=== PATIENT | male | born 1945 | race Caucasian/White ===

== ENCOUNTER 2021-07-17 19:23 | Emergency (ER) | payer MEDICARE, SELFPAY ==
[2021-07-17 19:25] VITALS: BP 181/82; PULSE 84; RESP 18; TEMP 37.8; O2SAT 97; BMI 29.0
--- NOTE | 2021-07-17 20:31 | HMH.EDUTC ---
[facility] – [place] Disposition Clinical Impression: Sinusitis Qualifiers: Sinusitis location: unspecified location Chronicity: acute Recurrence: non-recurrent Qualified Code(s): J01.90 - Acute sinusitis, unspecified Disposition: Home, Self-Care Condition on Discharge: Good Instructions: Sinusitis, DI for Sinusitis, Preventing the Spread of Coronavirus Discharge Instructions Additional Instructions: Drink plenty of fluids. Take tylenol or ibuprofen for pain or fever. Take the medications as directed. Follow up with your regular doctor. GO TO THE ER FOR ANY WORSENING SYMPTOMS Quarantine until you know the results of your covid-19 test. If it is positive, the health department should call you and give you further instructions about your length of Quarantine and other things. Notify your school or workplace of your results and follow their instructions regarding return to work/school. Don't start the oral steroids until tomorrow, since you had the shot here today. Prescriptions: methylPREDNISolone [Medrol] 4 mg PO DIRECTED 6 Days #21 packet Transmission Status: Received by [id number] Benzonatate [Tessalon Perle 100mg Cap] 100 mg PO TIDP PRN #30 cap PRN Reason: Cough Transmission Status: Received by [id number] Referrals: Provider,Referral, [Primary Care Provider] - Time of Disposition: 20:37 Medical Decision Making - Medical Records Medical records reviewed: No: I reviewed the patient's medical records. - Matthew Inquiry Pt receiving controlled substance: No Vital Signs: 07/17/21 19:25 07/17/21 20:46 Temperature 100.1 F H 100.1 F H Temperature Source Oral Pulse Rate 84 Pulse Rate [Right Brachial] 84 Respiratory Rate 18 18 Blood Pressure 181/82 H Blood Pressure [Right Arm] 181/82 H Blood Pressure Mean [Right Arm] 115 Blood Pressure Source [Right Arm] Automatic Cuff Blood Pressure Position [Right Arm] Sitting 02 Sat by Pulse Oximetry 97 Oxygen Delivery Method Room Air Orders (Tests/Meds): ED MEDICATIONS Discontinued Medications Generic Name Dose Route Start Last Admin Trade Name Freq PRN Reason Stop Dose Admin Ceftriaxone Sodium 1 gm 07/17/21 20:45 07/17/21 20:40 Ceftriaxone 1gm Vial IM 07/17/21 20:46 1 gm ONCE ONE Administration Lidocaine HCl 0 ml 07/17/21 20:45 07/17/21 20:40 Lidocaine 1% 5ml Pf Vial IM 07/17/21 20:46 2.1 ml ONCE ONE Administration Methylprednisolone Sodium Succinate 125 mg 07/17/21 20:45 07/17/21 20:40 Methylprednisolone Sod Succ 125mg Vial IM 07/17/21 20:46 125 mg ONCE ONE Administration ORDERS Category Date Time Status Covid-19 Nasal PCR ([facility]) Routine Lab 07/17/21 19:48 Received [facility] [place] HPI - General Stated complaint: cold sympomts Time Seen by Provider: 07/17/21 20:31 Mode of Arrival: Ambulatory Source of Information: Patient Limitations: No Limitations Description of Symptoms (Recalled from Triage Doc. by RN): PATIENT C/O COUGH, RUNNY NOSE, WEAKNESS, AND STOPPED UP EARS THAT STARTED 3 DAYS AGO HEENT Symptoms (Recalled from RN notes): No Resp Symptoms (Recalled from RN notes): No Skin Symptoms (Recalled from RN notes): No MS Symptoms (Recalled from RN notes): No Functional Status (Recalled from RN notes): WNL - History of Present Illness Provider Complaint: He states that he has had a sinus infection for the past 5 days. HE denies any chest congestion. - Related Data Previous Rx's Medication Instructions Recorded Benzonatate [Tessalon Perle 100mg 100 mg PO TIDP PRN #30 cap 07/17/21 Cap] methylPREDNISolone [Medrol] 4 mg PO DIRECTED 6 Days #21 07/17/21 packet Allergies Allergy/AdvReac Type Severity Reaction Status Date / Time No Known Allergies Allergy Verified 07/17/21 19:51 - Worker's Comp Is this a Worker's Comp case?: No [facility] History - Hepatitis A Screen Drug use history?: No High risk sexual behaviors?: No History of sexually transmitted i
[2021-07-17 20:46] VITALS: BP 181/82; PULSE 84; RESP 18; TEMP 37.8; O2SAT 97
== END 2021-07-17 21:00 | disposition home or self-care (01) ==
PROVIDERS: Emergency Provider Nurse Practitioner Family
DX: J01.90 Acute sinusitis, unspecified (principal); Z20.822 Contact with and (suspected) exposure to COVID-19
CPT/HCPCS: G0463; 96372; 99202; C9803; U0003; U0005